=== PATIENT | female | born 1980 | race Two or more races ===

== ENCOUNTER → 2019-07-03 | Outpatient (CLI) | payer OTHER | END | disposition home or self-care (01) | LOC: SONOGRAMA 08:50 | DX: E04.2 Nontoxic multinodular goiter (principal) ==

== ENCOUNTER 2020-11-15 10:59 | Outpatient (CLI) | payer OTHER | END 2020-11-15 11:42 | disposition home or self-care (01) | LOC: SONOGRAMA 10:59 | PROVIDERS: ATTEND Pathology Anatomic Pathology & Clinical Pathology | DX: E04.1 Nontoxic single thyroid nodule (principal) ==